=== PATIENT | female | born 1950 | race Caucasian/White ===

== ENCOUNTER 2019-10-13 14:45 | Outpatient (CLI) | payer MEDICARE | END 2019-10-13 14:46 | disposition critical access hospital (66) | LOC: EMS 14:45 | PROVIDERS: ATTEND Surgery | DX: R41.82 Altered mental status, unspecified (principal) | CPT/HCPCS: A0425; A0429 ==

== ENCOUNTER 2019-10-13 15:18 | Emergency (ER) | payer MEDICARE ==
--- NOTE | 2019-10-13 16:10 | ED Physician Documentation ---
History of Present Illness - Stated complaint Stated Complaint: ETOH - Chief complaint Chief Complaint: General - History obtained from History obtained from: Patient, EMS - History of Present Illness Timing: Chronic Severity Comments: moderate Quality: intoxicated, no change from her normal Radiates to: none Improved by: nothing Worsened by: nothing - Treatment prior to arrival Treatment prior to arrival: she was seen at [facility] 2 days ago for intoxication and a fall and at that time had negative imaging and labs. This included ct head, ct cspine, MRI head and MRA head. She had mild leukoctyosis but otherwise normal labs. She returns here today for medical clearance prior to going to inpatient alcohol rehab. Denies new symptoms. Has the same contusion on the back of her head that she had several days ago and the ongoing subconjunctival hemorrhage that is also old. Review of Systems Ten Systems: 10 systems reviewed and negative Constitutional: denies: Fever Eyes: reports: Reviewed and negative Cardiac: reports: Reviewed and negative Respiratory: reports: Reviewed and negative GI: reports: Reviewed and negative : reports: Reviewed and negative Skin: reports: Reviewed and negative Musculoskeletal: reports: Reviewed and negative Neurologic: reports: Head injury (2 days ago evaluated by [facility] at that time with negative imaging) Psychiatric: reports: Other (intoxicated, not suicidal). denies: Suicidal, Homicidal Endocrine: reports: Reviewed and negative PD PAST MEDICAL HISTORY - Past Medical History Past Medical History: Yes PD ED PE NORMAL - Vitals Vital signs reviewed: Yes - General General: No acute distress, Other (unkempt ) - HEENT HEENT: Other (old contusion to occiput, no laceration or abrasion ) - Cardiac Cardiac: RRR, No murmur, No gallop, No rub - Respiratory Respiratory: No respiratory distress, Clear bilaterally - Abdomen Abdomen: Soft, Non tender, Non distended - Female Female : Deferred - Rectal Rectal: Deferred - Derm Derm: Normal color, Warm and dry, No rash - Extremities Extremities: No deformity, No tenderness to palpate, Normal ROM s pain, Other (old abrasion and contusion to R knee, full active and passive ROM and weight bearing ) - Neuro Neuro: No motor deficit, No sensory deficit, Other (slurred speech ) Eye Opening: Spontaneous Motor: Obeys Commands Verbal: Confused GCS Score: 14 - Psych Psych: Other (obviously intoxicated on exam ) PD ED PE EXPANDED - Eyes Eyes: PERRL, Subconj hemorrhage (large circumferential), Other (R eye subconjunctival hemorrhage present ) Results - Vitals Vitals: Vital Signs - 24 hr 10/13/19 10/13/19 10/13/19 15:44 16:28 18:10 Temperature 36.8 C Heart Rate 86 93 88 Respiratory 16 17 16 Rate Blood Pressure 161/82 H 160/82 H 140/80 H O2 Saturation 96 95 96 Oxygen O2 Source Room air PD MEDICAL DECISION MAKING - ED course Complexity details: reviewed old records, re-evaluated patient, considered differential, d/w patient, d/w family ED course: 68 y/o F with hx of chronic alcoholism presents today for medical clearance evaluation for her to go to a rehab facility tomorrow for alcohol detox. She has repeatedly had falls due to intoxication per her , last fell a few days ago and had a full evaluation at [facility] at that time. He brought the records which I reviewed in detail. Pt had CTs performed of head and Cspine which were negative as well as MRis of her brain. She was noted to have a head contusion - occipital located and a subconjunctival hemorrhage which she still has. Per pt and there were no changes in her mental status between then and now. She was found laying down next to her bed today but no witnessed fallls or injuries and she is ambulatory and at her baseline mental status though intoxicated. She was monitored in the ED and on reevaluation is coherent and ambulatory. I do not feel repeat labs and imaging are indicated at this time. She appears to be stable and medically cleared for rehab. Pt discharged home and will go to rehab tomorrow. Departure - Departure Disposition: 01 Home, Self Care Clinical Impression: Alcoholism Condition: Stable Record reviewed to determine appropriate education?: Yes Instructions: Alcoholism Follow-Up: your, rehab facility [Other] Comments: You were evaluated today for medical clearance for alcohol rehab. A review of your labs and imaging tests from 2 days ago are normal. You do have a subconjunctival hemorrhage of your right eye that is old and an old occipital head contusion from your fall prior to your ED visit to [facility]. However your labs and CT/MRI of your head and neck were negative at [facility]. No further injuries are evident on your history examination and given you are coherent and ambulating normally I feel you are stable and medically cleared to go to rehab tomorrow. Discharge Date/Time: 10/13/19 18:16
[2019-10-13 18:11] VITALS: BP 140/80
== END 2019-10-13 18:16 | disposition home or self-care (01) ==
LOC: ED 15:18
DX: F10.229 Alcohol dependence with intoxication, unspecified (principal); Z91.81 History of falling; H11.31 Conjunctival hemorrhage, right eye
CPT/HCPCS: 99283; 99284

== ENCOUNTER 2020-01-24 10:37 | Outpatient (CLI) | payer MEDICARE | END 2020-01-28 23:59 | disposition short-term general hospital (02) | LOC: EMS 10:37 | PROVIDERS: ATTEND Surgery | DX: S09.90XA Unspecified injury of head, initial encounter (principal); R41.82 Altered mental status, unspecified; W18.30XA Fall on same level, unspecified, initial encounter; Y92.002 Bathroom of unspecified non-institutional (private) residence as the place of occurrence of the external cause | CPT/HCPCS: A0425; A0427 ==